=== PATIENT | male | born 1940 | race Caucasian/White ===

== ENCOUNTER 2023-06-18 12:40 | Outpatient (RCR) | payer MEDICARE, OTHER, SELFPAY | END 2023-06-18 23:59 | disposition home or self-care (01) | LOC: RPT 12:40 | PROVIDERS: ATTENDING PHYSICIAN Physical Medicine & Rehabilitation Pain Medicine; FAMILY PHYSICIAN Family Medicine | DX: M48.062 Spinal stenosis, lumbar region with neurogenic claudication (principal); R26.2 Difficulty in walking, not elsewhere classified; M62.81 Muscle weakness (generalized); Z73.6 Limitation of activities due to disability; Z85.72 Personal history of non-Hodgkin lymphomas; Z92.21 Personal history of antineoplastic chemotherapy | CPT/HCPCS: 97162 ==

== ENCOUNTER 2023-07-14 13:59 | Outpatient (RCR) | payer MEDICARE, OTHER, SELFPAY | END 2023-07-14 23:59 | disposition home or self-care (01) | LOC: RPT 13:59 | PROVIDERS: ATTENDING PHYSICIAN Physical Medicine & Rehabilitation Pain Medicine; FAMILY PHYSICIAN Family Medicine | DX: M48.062 Spinal stenosis, lumbar region with neurogenic claudication (principal); R26.2 Difficulty in walking, not elsewhere classified; M62.81 Muscle weakness (generalized); Z85.72 Personal history of non-Hodgkin lymphomas; Z92.21 Personal history of antineoplastic chemotherapy | CPT/HCPCS: 97110 ==

== ENCOUNTER 2023-07-22 12:57 | Outpatient (RCR) | payer MEDICARE, OTHER, SELFPAY | END 2023-08-07 08:25 | disposition home or self-care (01) | LOC: RPT 12:57 | PROVIDERS: ATTENDING PHYSICIAN Physical Medicine & Rehabilitation Pain Medicine; FAMILY PHYSICIAN Family Medicine | DX: M48.062 Spinal stenosis, lumbar region with neurogenic claudication (principal); R26.2 Difficulty in walking, not elsewhere classified; M62.81 Muscle weakness (generalized) | CPT/HCPCS: 97110 ==

== ENCOUNTER → 2024-01-26 12:33 | Outpatient (REF) | payer MEDICARE, OTHER, SELFPAY | LOC: HWRAD 12:33 | PROVIDERS: ATTENDING PHYSICIAN Internal Medicine Rheumatology; FAMILY PHYSICIAN Family Medicine | DX: M19.90 Unspecified osteoarthritis, unspecified site (principal); M79.641 Pain in right hand; M79.642 Pain in left hand | CPT/HCPCS: 73130 ==

== ENCOUNTER 2024-03-27 15:01 | Emergency (ER) | payer MEDICARE, OTHER, SELFPAY ==
[2024-03-27 15:03] VITALS: BP 154/92
--- NOTE | 2024-03-27 15:48 | ED.GENMED ---
History of Present Illness
General
Chief Complaint: Gait Dysfunction
Source: patient and records
Exam Limitations: none
Time Seen by Provider: 03/27/24 15:26
Nursing documentation reviewed up to this point in time: agreed with
History of Present Illness
History of Present Illness:
Patient is an 83-year-old male who presents to the emergency department complaining of right ankle and foot pain as well as swelling and redness. Patient states that approximately week ago he injured it miss stepping on the bathroom. Patient uses
a walker or a cane chronically. Patient denies any fever or chills. 2 days ago the pain got worse as well as the swelling and redness. Patient is not able to weight-bear at this time. He was weightbearing up until a few days ago. Patient denies
any previous history of similar episodes.
Past History
Past History
ED Past Medical History: Cancer (Non-Hodgkin's lymphoma) and GERD
Social History
Tobacco: Former smoker
Review of Systems
Review of Systems
All Other Systems: Not applicable
Constitutional: Denies fever or chills
Musculoskeletal: Reports joint pain and joint swelling
Skin: Reports other (Redness of right foot and ankle)
Phy Exam
Physical Exam
Physical Exam:
Physical Exam
General: mild distress, alert and appropriate, well nourished, well hydrated
HENT: Normocephalic, supple
Eyes: Clear sclera, conjuctiva without injection
Neuro: Alert and oriented x 3, CN II - XII intact, no motor focality, no cerebellar dysfunction
Skin: no rash. Erythema of the right ankle lateral greater than medial as well as the dorsal lateral aspect of the right foot
Psychiatric: well kept. interactive and cooperative
Extremities: No cyanosis. Good and equal peripheral pulses. Right ankle is diffusely swollen and diffusely tender. No apparent instability. Achilles intact. Right foot is swollen and erythematous along the dorsi flexor,
lateral surface with tenderness on the distal third, fourth and fifth metatarsals.
Course
Orders/Labs/Results
Orders:
Orders
03/27/24 15:46
Ankle, Right 3 view CR [CR Ankle - Right Min 3 Views *] Urgent
Comment:
Reason For Exam: Diffuse tenderness, swelling and redness
Foot, Right 3 View [CR Foot - Right Min 3 Views] Urgent
Comment:
Reason For Exam: tender laterally distally with redness swelling
03/27/24 16:10
Basic Metabolic Panel Urgent
Complete Blood Count/With Diff Urgent
Sed Rate [Erythrocyte Sed Rate] Urgent
Uric Acid Urgent
03/27/24 17:42
Alvaro Wrap Right-Treatment ONCE
boot [Ortho Boot Right- Treatment] ONCE
Short or tall?: Tall
Abnormal Lab Results
03/27/24
16:10
Absolute Lymphs (auto) 0.8 L 10^3/uL
(1.2-3.4)
Neutrophils % 80.0 H %
(42.2-75.2)
Lymphocytes % 11.4 L %
(20.5-51.1)
Creatinine 0.6 L mg/dL
(0.7-1.3)
Glucose 123 H mg/dl
(70-99)
03/27/24 16:10
03/27/24 16:10
Vital Signs
Initial and Last Documented VS:
Initial Vital Signs
Temp Pulse Resp BP Pulse Ox
97.6 F 77 16 154/92 97
03/27/24 15:03 03/27/24 15:03 03/27/24 15:03 03/27/24 15:03 03/27/24 15:03
Last Documented Vital Signs
Temp Pulse Resp BP Pulse Ox
97.6 F 77 16 154/92 97
03/27/24 15:03 03/27/24 15:03 03/27/24 15:03 03/27/24 15:03 03/27/24 15:03
*Radiology
Radiology exam reviewed: radiology read reviewed (No fracture)
*Pulse Oximetry
Patient hypoxic: no
*EKG
Interpreted by ED Provider?: NA
*Trucking Supervisor Interpretation
Rate: Trucking Supervisor- N/A
*Critical Care Note
Total Time (30-74mins, 75-104mins- exclusive of procedures): Not Applicable
Update Note
Update Note:
The x-rays are negative for fracture. Does not appear to be infectious. Likely traumatic with probably secondary injury from continued weightbearing. Will place the patient in Ortho boot. Patient has a walker at home as well as a cane. Will
refer the patient to orthopedics.
ED Attending Note
-
Portions of this chart may have been created with voice recognition software.� Occasional wrong word or��sound alike� substitutions may have occurred due to the inherent limitations of voice recognition software.
Discharge Plan
Departure
Patient Disposition: Home (Routine Discharge)
Date of Disposition: 03/27/24
Time of Disposition: 17:44
Patient with high blood pressure during this ER visit?: Yes
Condition: Fair
Covid-19: Not Applicable
Discharge Problem:
Sprain of ankle, right
Instructions: Ankle Sprain ED, BLOOD PRESSURE, RICE Therapy
Referrals:
Sunny Pelaez MD [Family Provider] - Follow up in 5-7 days
Max Acosta MD [Active] - Call in 1-3 days for appt
Activity Restrictions/Additional Instructions:
Use a cane or a walker. Continue present medications. Tylenol 650 mg to 1000 mg every 6 hours for pain.
Interventions
Interventions:
*Risk Screen - Suicide Last Done: 03/27/24 15:03
*General Assessment Last Done: 03/27/24 15:03
*Neglect/Abuse Screening Last Done: 03/27/24 15:03
*ED COVID-19 Vaccine History Last Done: 03/27/24 15:03
Discharge Date and Time
Print Language: KOREAN
[2024-03-27 16:22] LABS: % Basophils 0.3 % (0-2); % Immature Granulocytes 0.4 % (0-0.5); % Lymphocytes 11.4 % (20.5-51.1); % Monocytes 6.9 % (1.7-9.3); Absolute Eosinophils 0.1 10^3/uL (0-0.7); Absolute Lymphocytes 0.8 10^3/uL (1.2-3.4); Absolute Monocytes 0.5 10^3/uL (0.1-0.6); Absolute Neutrophils 5.8 10^3/uL (1.4-6.5); Hematocrit 41.9 % (39.0-52.0); Hemoglobin 14.6 g/dL (13.0-18.0); Mean Corp Hgb Conc. 34.8 g/dL (33.0-37.0); Mean Corpuscular Hgb 29.7 pg (27.0-31.0); Mean Corpuscular Volume 85.3 fL (80.0-94.0); Mean Platelet Volume 8.6 fL (7.4-10.4); Nucleated Red Blood Cells % 0 % (-); Platelet Count 191 10^3/uL (130-400); Red Blood Cell Count 4.91 10^6/uL (4.70-6.10); White Blood Cell Count 7.3 10^3/uL (4.8-10.8)
[2024-03-27 16:32] LABS: Erythrocyte Sed Rate 16 mm/hour (0-20)
[2024-03-27 16:40] LABS: Blood Urea Nitrogen 9 mg/dl (9-20); Calcium 9.5 mg/dl (8.4-10.2); Carbon Dioxide 27 mmol/L (22-30); Chloride 98 mmol/L (98-107); Glucose 123 mg/dl (70-99); Potassium 4.2 mmol/L (3.5-5.1); Sodium 135 mmol/L (135-145); Uric Acid 5.4 mg/dl (3.5-8.5); eGFR > 60.00
[2024-03-27 18:15] VITALS: BP 126/74
== END 2024-03-27 18:46 | disposition home or self-care (01) ==
LOC: EMR 15:01
PROVIDERS: EMERGENCY PHYSICIAN Emergency Medicine; FAMILY PHYSICIAN Family Medicine
DX: S93.401A Sprain of unspecified ligament of right ankle, initial encounter (principal); X58.XXXA Exposure to other specified factors, initial encounter; K21.9 Gastro-esophageal reflux disease without esophagitis; Z87.891 Personal history of nicotine dependence; Z85.72 Personal history of non-Hodgkin lymphomas
CPT/HCPCS: 99283; 73610; 73630; 80048; 84550; 85025; 85652

== ENCOUNTER 2024-12-12 17:39 | Emergency (ER) | payer MEDICARE, OTHER, SELFPAY ==
[2024-12-12 17:46] VITALS: BP 129/79
--- NOTE | 2024-12-12 19:34 | ED.GENMED ---
History of Present Illness
General
Chief Complaint: Skin Surface Trauma
Source: patient
Exam Limitations: none
Time Seen by Provider: 12/12/24 19:28
Nursing documentation reviewed up to this point in time: agreed with
History of Present Illness
History of Present Illness:
Note:
CHIEF COMPLAINT(S)
Wound on the right ankle; concern for possible infection and potential blood clot.
HISTORY OF PRESENT ILLNESS
The patient is an 84-year-old male with a history of GERD, non-Hodgkin's lymphoma 3 years into remission, who presents to the emergency department today with concerns of a wound noted to his right ankle. Patient reports that this wound first
started 3 years ago. The wound originated from an incident in 2022 following a sprain in the same ankle. Approximately one month ago, a toughened area of skin shed, revealing an open wound approximately the size of a silver dollar. Initially, the
wound appeared to be healing well with the application of antibiotic ointment and dressings as per the podiatrists recommendations. However, the patient reported a recent onset of mild drainage, which began about two to three days ago. There is also
notable swelling in the leg, which has been present for approximately one month, raising concerns about a potential blood clot. The patient denies any recent trauma to the area and reports no pain at rest but occasional cramping. The patient voiced
concern regarding conflicting advice on wound care management, particularly regarding whether the wound should be kept dry or washed with soap and water. The patient jusr saw his insurance risk analyst a few days ago and was given wound care instructions.
ADDITIONAL HISTORY OBTAINED FROM SOURCES OTHER THAN THE PATIENT
Per the patients family member, the wound began exhibiting drainage recently, prompting the current visit.
SOCIAL DETERMINANTS AFFECTING HEALTH
The patient reported experiencing cramping and swelling in the lower extremity.
CHRONIC MEDICAL CONDITIONS SIGNIFICANTLY AFFECTING CARE
The patient has a history of Non-Hodgkin lymphoma, currently in remission for nearly three years. He also has a history of prior blood clots, one of which was managed in the previous year.
PHYSICAL EXAM
- Nursing notes reviewed and vital signs reviewed.
General: Patient is well appearing and in no acute distress; non-toxic
Skin: Warm and dry, erythema noted to the right anterior ankle with small crusted over wound with minimal purulent drainage
Head: Normocephalic, atraumatic
Eyes: Sclera non-icteric. EOMs intact.
Cardiac: Regular rate
Peripheral Vascular: Right sided lower extremity swelling, 2+ dorsalis pedis pulse
Pulm: Normal respiratory effort
Musculoskeletal: No calf tenderness on the right, no bony tenderness palpation of the right lower extremity
Neuro: CN II-XII intact, no focal neurologic deficits.
Psychiatric: Appropriate mood and affect.
PROBLEM LIST
Acute:
- wound on the right ankle
- Swelling in the right leg
Chronic:
- History of Non-Hodgkins lymphoma
- History of blood clots
PLAN
1. Obtain an ultrasound of the right lower extremity to rule out deep vein thrombosis.
2. Initiate antibiotic therapy to cover for potential infection, keeping in mind the patients history of Clostridioides difficile infection and avoiding antibiotics that could trigger a recurrence.
3. Reinforce wound care instructions based on the podiatrists recommendations after considering current wound status and diagnostic results.
4. Arrange follow-up with insurance risk analyst post-antibiotic therapy to ensure wound healing and address any further concerns with wound management.
5. Monitor the patient for any signs of systemic infection or complications.
DIFFERENTIAL DIAGNOSIS
The Differential Diagnosis includes, in no particular order and is not limited to:
1. Cellulitis
2. Venous insufficiency
3. Deep vein thrombosis
4. Complicated wound healing
5. Localized infection/abscess
6. Chronic venous ulceration
7. Contact dermatitis
8. Peripheral artery disease
9. Thrombophlebitis
10. Osteomyelitis
CHART REVIEW
Reviewed ER physician documentation from 03/27/2024 patient seen for ankle sprain, he was placed in Ortho boot and Alvaro wrap and was discharged
No discharge summary in [facility] to review
MDM/DISPOSITION
The patient is an 84-year-old male with a history of GERD, non-Hodgkin's lymphoma 3 years into remission, who presents to the emergency department today with concerns of a wound noted to his right ankle. Patient reports that this wound first
started 3 years ago. The wound originated from an incident in 2022 following a sprain in the same ankle. He presents today because he noted that yesterday, he started to have some mild drainage from the wound and he is also concerned because he
was hearing various wound care advice, he is hearing different advice from his insurance risk analyst instructing him to keep the wound dry whereas he has read on wound care packing he that he should keep the wound wet. He has also had some swelling in his
right lower extremity but he has had this for months. He denies any fevers or chills. He states that the redness around the wound does not travel up the leg. On physical exam patient is well-appearing no acute distress he does have asymmetric
swelling of the right leg. However this is seems to be chronic. There is minimal drainage from the wound. No evidence of ulceration. He has no bony tenderness. He went for ultrasound to rule out DVT which was negative. No indication for blood
work at this time patient has no systemic signs or symptoms. Suspect drainage likely serosanguineous and sequela of wound healing did not suspect active infection however considering this is a new change to his wound and he has bandages have been
more moist than usual, will initiate a antibiotic to cover for developing infection. Stressed follow-up with insurance risk analyst and strict return precautions. Considering patient's history of C. difficile, will initiate doxycycline which patient has
tolerated well in the past. Patient stable for discharge
Past History
Past History
ED Past Medical History: Cancer (Non-Hodgkin's lymphoma) and GERD
Social History
Tobacco: Former smoker
Phy Exam
Physical Exam
Physical Exam:
see hpi
Course
Orders/Labs/Results
Orders:
Orders
12/12/24 19:55
US Periph Venous LOWER Ext RT Urgent
Comment:
Reason For Exam: right lower extremity swelling
Vital Signs
Initial and Last Documented VS:
Initial Vital Signs
Temp Pulse Resp BP Pulse Ox
98 F 82 16 129/79 100
12/12/24 17:46 12/12/24 17:46 12/12/24 17:46 12/12/24 17:46 12/12/24 17:46
Last Documented Vital Signs
Temp Pulse Resp BP Pulse Ox
98 F 78 16 141/78 99
12/12/24 17:46 12/12/24 21:38 12/12/24 21:38 12/12/24 21:38 12/12/24 21:38
*Pulse Oximetry
SaO2: 100
Oxygen Mode of Delivery: Room air
Patient hypoxic: no
*Critical Care Note
Total Time (30-74mins, 75-104mins- exclusive of procedures): Not Applicable
ED Attending Note
-
Portions of this chart may have been created with voice recognition software.� Occasional wrong word or��sound alike� substitutions may have occurred due to the inherent limitations of voice recognition software.
Discharge Plan
Departure
Patient Disposition: Home (Routine Discharge)
Date of Disposition: 12/12/24
Time of Disposition: 22:13
Patient with high blood pressure during this ER visit?: Yes
Condition: Good
Discharge Problem:
Chronic wound of extremity
Instructions: Wound Care ([place]), [facility], BLOOD PRESSURE
Prescriptions:
New
doxycycline hyclate 100 mg tablet
100 mg PO BID 5 Days Qty: 10 0RF
Referrals:
Gayla Lockett DPM [Active, Podiatry] - Call in 1-3 days for appt
UNKNOWN - PT DOES,NOT KNOW [Family Provider]
WOUND CARE,CENTER [Active [facility]] - Call in 1-3 days for appt
Activity Restrictions/Additional Instructions:
Please follow-up with the wound care center. Please call the attached number to schedule an appointment. Please follow-up with your insurance risk analyst in the next week.
Doxycycline's been sent to your pharmacy. Please take 1 tablet twice daily for 5 days.
Please follow your insurance risk analyst instructions for wound care.
PLEASE RETURN TO EMERGENCY DEPARTMENT SHOULD YOU DEVELOP PAIN, DIFFICULTY AMBULATING, LOSS OF SENSATION IN YOUR LOWER EXTREMITY, INCREASING ERYTHEMA, FEVERS OR CHILLS, NAUSEA OR VOMITING, OR ANY OTHER SIGNS OR SYMPTOMS WORRISOME TO YOU.
Interventions
Interventions:
*Risk Screen - Suicide Last Done: 12/12/24 17:53
*General Assessment Last Done: 12/12/24 22:44
*Neglect/Abuse Screening Last Done: 12/12/24 17:53
*ED- Fall Risk Assessment Last Done: 12/12/24 22:44
*ED COVID-19 Vaccine History Last Done: 12/12/24 22:44
*Nursing Disposition Last Done: 12/12/24 22:44
ED-Skin Assessment Last Done: 12/12/24 21:38
Discharge Date and Time
Discharge Date/Time: 12/12/24 22:46
Print Language: LIBYAN
[2024-12-12 21:38] VITALS: BP 141/78
== END 2024-12-12 22:46 | disposition home or self-care (01) ==
LOC: EMR 17:39
PROVIDERS: EMERGENCY PHYSICIAN Emergency Medicine
DX: S91.001A Unspecified open wound, right ankle, initial encounter (principal); M79.604 Pain in right leg; X58.XXXA Exposure to other specified factors, initial encounter; M79.89 Other specified soft tissue disorders; R03.0 Elevated blood-pressure reading, without diagnosis of hypertension; K21.9 Gastro-esophageal reflux disease without esophagitis; C85.9A Non-Hodgkin lymphoma, unspecified, in remission; Z86.718 Personal history of other venous thrombosis and embolism; Z87.891 Personal history of nicotine dependence
CPT/HCPCS: 99284; 93971

== ENCOUNTER → 2024-12-20 07:47 | Outpatient (REF) | payer MEDICARE, OTHER, SELFPAY | LOC: WOUND 07:47 | PROVIDERS: ATTENDING PHYSICIAN Surgery; FAMILY PHYSICIAN Nurse Practitioner Family | DX: L97.319 Non-pressure chronic ulcer of right ankle with unspecified severity (principal); I87.2 Venous insufficiency (chronic) (peripheral) | CPT/HCPCS: 99203 ==